=== PATIENT | female | born 1985 | race Caucasian/White ===

== ENCOUNTER → 2016-05-20 | Outpatient (CLI) | payer OTHER | DX: M54.5 Low back pain (principal); M47.816 Spondylosis without myelopathy or radiculopathy, lumbar region; Z88.0 Allergy status to penicillin | CPT/HCPCS: 72110 ==

== ENCOUNTER 2020-05-29 18:33 | Emergency (ER) | payer MEDICARE, OTHER ==
[~2020-05-29 18:33] MED LIST: BACTRIM DS TAB1 EACH PO; COLACE 100MG C100 MG PO; FOLIC ACID0.4 MG PO; IBU800 MG PO; IBUPROFEN600 MG PO; MIRALAX 119 GR119 GM GT; MIRALAX17 GM PO; MYCOSTATIN POWD15 GM TOP; PRENATAL VITAM1 EAC8 PO; ROBAXIN-750750 MG PO; SUBUTEX 8 MG TAB8 MG SL; TRANDATE 100 M100 MG PO
[2020-05-29 19:20] LABS: HEMOGLOBIN 15.2 gm/dl (12.3-15.3); RED BLOOD COUNT 5.3 M/UL (4.00-5.10); WHITE BLOOD COUNT 9.6 K/UL (4.5-11.0)
[2020-05-29 19:53] LABS: BUN/CREATININE RATIO 19 (0-10)
[2020-05-29] MEDS ORDERED: PREDNISONE 50 M50 MG PO (23:19)
[2020-05-29] MEDS ORDERED: MACROBID 100 M100 M1 PO (23:19)
[2020-05-29] MEDS ORDERED: PEPCID40 MG PO (23:19)
[2020-05-29] MEDS ORDERED: BENADRYL 50MG C50 MG PO (23:19)
== END 2020-05-29 23:22 | disposition home or self-care (01) ==
LOC: ER1 18:33
PROVIDERS: Physician Assistant
DX: R07.9 Chest pain, unspecified (principal); L50.0 Allergic urticaria; R20.2 Paresthesia of skin; I10 Essential (primary) hypertension; Z20.822 Contact with and (suspected) exposure to COVID-19; N39.0 Urinary tract infection, site not specified; M79.602 Pain in left arm; F17.210 Nicotine dependence, cigarettes, uncomplicated; Z90.710 Acquired absence of both cervix and uterus; Z88.8 Allergy status to other drugs, medicaments and biological substances
CPT/HCPCS: 0240U; 71045; 80053; 81001; 82550; 82553; 83874; 83880; 84484; 84703; 85025; 85379; 85610; 85730; 87086; 93005; 96365; 96375; 99285; J1200; J2930; Q9967

== ENCOUNTER → 2021-02-11 | Outpatient (CLI) | payer OTHER, MEDICAID ==
[~2021-02-11] MED LIST changes: +BENADRYL 50MG C50 MG PO; +MACROBID 100 M100 M1 PO; +PEPCID40 MG PO; +PREDNISONE 50 M50 MG PO
== END ==
LOC: KOH-I 12:19
DX: M16.11 Unilateral primary osteoarthritis, right hip (principal)
CPT/HCPCS: 73502

== ENCOUNTER → 2021-04-16 | Outpatient (CLI) | payer OTHER | LOC: MAMO 09:39 | DX: N64.4 Mastodynia (principal) | CPT/HCPCS: 76641; 77066; G0279 ==